=== PATIENT | male | born 1975 | race Caucasian/White ===

== ENCOUNTER 2017-08-22 15:21 | Outpatient (CLI) | payer OTHER ==
--- NOTE | 2017-08-25 09:55 | MRI ---
MRI RIGHT SHOULDER WITHOUT CONTRAST: HISTORY: Injury. Pain. COMPARISON: MRI from 2016. FINDINGS: Biceps tendon: Prior tenodesis. Labrum: There is fraying of the superior labrum without a new tear. There is less than mild fraying of the posterior-superior labrum. Rotator cuff: There is moderate bursal surface fraying of the posterior fibers of the supraspinatus tendon but predominantly of the infraspinatus tendon, although without a full-thickness perforation. Low grade interstitial tearing. There is a hidden interstitial tear of the anterior fibers, infrasp inatus tendon, at the footplate, measuring 4 mm in AP dimension, approximately 50% thickness. Bones: Prior surgery at the acromioclavicular joint. No acute fracture. No chest edema. Muscles: There is mild edema involving only the infraspinatus muscle. This is best seen on the sagi ttal T2 fat-sat. No significant muscle atrophy. IMPRESSION: 1. Mild fraying of the superior labrum, although much improved from the comparison examination. No new labral tear. 2. Moderate bursal surface fraying of the posterior supraspinatus and anterior infraspinatus tendon with mild interstitial tearing and tendinosis. There is also a hidden interstitial tear of the anter ior fibers, infraspinatus tendon, at the footplate, almost 50% thickness, which is hidden. 3. Edema of the infraspinatus muscle, low grade, which can be seen with brachial neuritis. No muscl e atrophy. POS: [facility]
== END 2017-08-22 15:22 | disposition home or self-care (01) ==
LOC: SCSMRI 15:21
PROVIDERS: ATTEND Orthopaedic Surgery
DX: M25.511 Pain in right shoulder (principal); M67.813 Other specified disorders of tendon, right shoulder; S46.911A Strain of unspecified muscle, fascia and tendon at shoulder and upper arm level, right arm, initial encounter; M62.89 Other specified disorders of muscle

== ENCOUNTER 2017-09-12 13:25 | Outpatient (CLI) | payer OTHER ==
--- NOTE | 2017-09-12 15:13 | MRI ---
CERVICAL SPINE MRI WITHOUT CONTRAST: Date: 09/12/17 HISTORY: Acute pain in the right shoulder. Numbness and tingling. COMPARISON: None. TECHNIQUE: Cervical spine MRI is performed without intravenous Gadolinium administration. Multisequential, multi planar imaging is performed. FINDINGS: Straightening of normal cervical lordosis may be due to patient positioning or muscle spasm. There is no evidence of STIR hyperintensity to suggest edema of the vertebral bodies or to suggest ligamentou s injury. Visualized brain parenchyma, cervicomedullary junction, cervical cord, and the upper thoracic cord jones ve a normal size and signal intensity. C2-C3: Central disc osteophyte complex without significant central canal stenosis. Neural foramina are paten t. C3-C4: No significant disc osteophyte complex. No significant central canal stenosis. Degenerative changes i n bilateral uncovertebral joints, along with bilateral facet hypertrophy result in mild right and mod erate left foraminal narrowing. C4-C5: Central/right paracentral disc osteophyte complex abuts the right aspect of the thecal sac and deform s the right hemicord. No T2 hyperintensity of the cord. Overall, mild central canal stenosis. Degener ative changes of the right uncovertebral joint result in mild right foraminal narrowing. The left jayro ral foramen is patent. C5-C6: Moderate disc osteophyte complex abuts the thecal sac. Ventral subarachnoid space is effaced. Mild fl attening of the cervical cord, without T2 hyperintensity of the cord. Overall, there is mild central canal stenosis. Mild bilateral foraminal narrowing. C6-C7: Broad based disc osteophyte complex abuts the thecal sac. Mild central canal stenosis. Mild bilateral foraminal narrowing. C7-T1: No significant disc osteophyte complex. No significant central canal stenosis. Neural foramina are pa tent. IMPRESSION: Degenerative changes of the cervical spine as described above. POS: [facility]
== END 2017-09-12 13:26 | disposition home or self-care (01) ==
LOC: TBSIIMAG 13:25
PROVIDERS: ATTEND Orthopaedic Surgery
DX: M47.22 Other spondylosis with radiculopathy, cervical region (principal); M25.511 Pain in right shoulder
CPT/HCPCS: 72141

== ENCOUNTER 2017-11-05 06:11 | Day surgery (SDC) | payer OTHER ==
[2017-11-04 08:19] VITALS: BMI 37.4
[2017-11-05] MEDS ORDERED: Sodium Chloride 0.9% 10 ML ONE (06:39)
[2017-11-05 06:46] LABS: Hemoglobin 14.8 g/dL (14.0-18.0); Mean Corpuscular HGB CONC 33.1 g/dL (32.0-36.0); Mean Corpuscular Hemoglobin 29.8 pg (27.0-31.0); Mean Corpuscular Volume 89.9 fL (78.0-98.0); Mean Platelet Volume 6.9 fL (7.4-10.4); Platelet Count 259 thou/uL (130-400); RBC Distribution Width 11.9 % (11.5-14.5); Red Blood Cell (RBC) Count 4.98 mill/uL (4.70-6.10); White Blood Cell (WBC) Count 7.5 thou/uL (4.8-10.8)
[2017-11-05] MEDS ORDERED: CEFAZOLIN/Water 2 GM/20 ML SYRINGE ONE (06:56)
[2017-11-05] MEDS ORDERED: Fentanyl 100 MCG/2 ML VIAL ONE (06:58)
[2017-11-05 07:03] LABS: Anion Gap 12 mmol/L (10-20); BUN (Urea Nitrogen) 15 mg/dL (8.9-20.6); Calc. Creatinine Clearance 175 mL/min (70-130); Calcium 8.8 mg/dL (7.8-10.44); Carbon Dioxide 24 mmol/L (22-29); Chloride 108 mmol/L (98-107); Estimated GFR-MDRD Greater than 90; Glucose 101 mg/dL (70-105); Potassium 3.8 mmol/L (3.5-5.1); Sodium 140 mmol/L (136-145)
[2017-11-05] MEDS ORDERED: PROPOFOL 200 MG/20 ML VIAL ONE (09:37)
[2017-11-05] MEDS ORDERED: PHENYLEPHRINE-NS 100 MCG/ML 10 ML SYRINGE ONE (09:37)
[2017-11-05] MEDS ORDERED: Lidocaine 1% PF 5 ML VIAL ONE (09:37)
[2017-11-05] MEDS ORDERED: Ondansetron HCl/PF 4 MG/2 ML Vial ONE (09:37)
[2017-11-05] MEDS ORDERED: Dexamethasone 20 MG/5 ML VIAL ONE (09:37)
[2017-11-05] MEDS ORDERED: ePHEDrine/0.9% NaCl/PF SYRINGE 50 mg/10 ml ONE (09:37)
[2017-11-05] MEDS ORDERED: Glycopyrrolate 0.2 MG/ML 5 ML SYRINGE ONE (09:37)
--- NOTE | 2017-11-05 10:19 | OP ---
DATE OF PROCEDURE: 11/05/2017 SURGEON: Henry Urbina M.D. DATA MANAGEMENT CONSULTANT: Sen Covarrubias PA-C PROCEDURE: Anterior cervical discectomy C5-6 and C6-7, interbody arthrodesis, intravertebral biomech anical device, local morselized autograft, demineralized bone matrix, anterior titanium instrumentati on C5-6 and C6-7. PROCEDURE IN DETAIL: The patient was brought into the operating room and intubated. He was rolled i n prone position on gel-filled chest rolls. Incision made exposing the anterior cervical spine and o ur level was confirmed by x-ray. We did inspect the anterior aspect of C4-5 and did not find any rochelle dence of degenerative disease or osteophytic change. We then placed distraction between C5 and C7, u sing the operating microscope and microdissection techniques, completely debrided the intravertebral discs and decompressed the spinal cord and the level of the dura bilaterally. The bony endplates wer e then decorticated for the purpose of arthrodesis and appropriately sized intravertebral biomechanic al PEEK device was brought into the field, filled with demineralized bone matrix, local morselized au tograft, and tapped into place securely at C5-6 and C6-7. Next, an anterior plate was brought in the field and secured to C5, C6, and C7 using two 14 mm screws at each level. The wound was then extens ively irrigated, immaculate hemostasis was secured, and the wound was closed in anatomic layers.
--- NOTE | 2017-11-09 17:09 | EKG ---
Test Reason : PREOP Blood Pressure : / mmHG Vent. Rate : 052 BPM Atrial Rate : 052 BPM P-R Int : 124 ms QRS Dur : 100 ms QT Int : 444 ms P-R-T Axes : 018 029 025 degrees QTc Int : 412 ms Sinus bradycardia with sinus arrhythmia Otherwise normal ECG No previous ECGs available Confirmed by KARLA CALDERON (2) on 11/09/2017 5:08:34 PM Referred By: CHAPIN Confirmed By:KARLA CALDERON
== END 2017-11-05 11:00 | disposition home or self-care (01) ==
LOC: SDC 06:11
PROVIDERS: ATTEND Neurological Surgery
PROC: 0RG1071 Fusion of Cervical Vertebral Joint with Autologous Tissue Substitute, Posterior Approach, Posterior Column, Open Approach (ICD-10-PCS; principal; 2017-11-05)
DX: M50.122 Cervical disc disorder at C5-C6 level with radiculopathy (principal); Z91.013 Allergy to seafood
CPT/HCPCS: 36415; 76001; 80048; 85027; 93005; 93010; A4216; C1713; C1776; J1100; J2001; J2405; J2704; J3010; J3490

== ENCOUNTER 2017-11-19 15:47 | Outpatient (CLI) | payer OTHER ==
--- NOTE | 2017-11-19 18:38 | RAD ---
3 VIEWS CERVICAL SPINE: Date: 11/19/17 HISTORY: Cervical radiculopathy. FINDINGS: AP, lateral, and open-mouth odontoid views of cervical spine obtained. Three views of the cervical sp ine demonstrate ACDF with fusion of the C5, C6, and C7 vertebra. ACDF plates and screws are in good p osition. Anterior osteophytes seen at C3-4. IMPRESSION: Mid and lower cervical spine fusion. No evidence of acute cervical spine abnormality seen. POS: [facility]
== END 2017-11-19 15:48 | disposition home or self-care (01) ==
LOC: TBSIIMAG 15:47
PROVIDERS: ATTEND Neurological Surgery
DX: M54.12 Radiculopathy, cervical region (principal); Z98.1 Arthrodesis status
CPT/HCPCS: 72040

== ENCOUNTER 2017-12-31 15:07 | Outpatient (CLI) | payer OTHER ==
--- NOTE | 2017-12-31 16:52 | RAD ---
CERVICAL SPINE AP LATERAL STANDARD 12/31/17 HISTORY: M54.12 - cervical radiculopathy. COMPARISON: Radiograph 11/19/17. FINDINGS: Similar appearance of ACDF hardware of C5-C7 without hardware complication. There is narrowing of the C4-C5 disc space. There are bridging anterior osteophyte at C3-4. Lung apices appear clear. IMPRESSION: Similar appearance of the postoperative changes. POS: [facility]
== END 2017-12-31 15:08 | disposition home or self-care (01) ==
LOC: TBSIIMAG 15:07
PROVIDERS: ATTEND Neurological Surgery
DX: M54.12 Radiculopathy, cervical region (principal); Z98.890 Other specified postprocedural states
CPT/HCPCS: 72040

== ENCOUNTER 2022-09-05 14:51 | Inpatient (IN) | payer BC ==
[2022-09-05] MEDS ORDERED: Acetaminophen 325 MG TAB PO PRN (19:43)
[2022-09-05] MEDS ORDERED: Acetaminophen 650 MG Suppository PR PRN (19:43)
[2022-09-05] MEDS ORDERED: Ondansetron PF 4 MG/2 ML Vial IVP PRN (19:43)
[2022-09-05] MEDS ORDERED: Ondansetron ODT 4 MG TAB PO PRN (19:43)
[2022-09-05 20:32] VITALS: BMI 41.8
[2022-09-05] MEDS: Enoxaparin 120 MG/0.8 ML SYRINGE SC SCH (21:04)
[2022-09-05 22:48] LABS: SARS-CoV-2 NAA Rapid Test Not Detected (NotDetected)
[2022-09-06 04:30] LABS: #Monocytes 0.7 thou/uL (0.11-0.59); #Neutrophils 11.1 thou/uL (1.40-6.50); %Basophils 0.1 % (0.0-1.0); %Lymphocytes 7.9 % (21.0-51.0); %Monocytes 5.4 % (0.0-10.0); %Neutrophils 86.3 % (42.0-75.0); Mean Corpuscular Hemoglobin 30.6 pg (27.0-31.0); Mean Corpuscular Volume 89.9 fl (78.0-98.0); Mean Platelet Volume 9.1 fL (7.4-10.4); Platelet Count 214 10x3/uL (130-400); RBC Distribution Width 12.2 % (11.5-14.5); Red Blood Cell (RBC) Count 5.23 mill/uL (4.70-6.10); White Blood Cell (WBC) Count 12.9 10x3/uL (4.8-10.8)
[2022-09-06 04:51] LABS: Anion Gap 12 mmol/L (10-20); BUN (Urea Nitrogen) 13 mg/dL (8.9-20.6); Calc. Creatinine Clearance 183 mL/min (70-130); Calcium 9.2 mg/dL (7.8-10.44); Carbon Dioxide 22 mmol/L (22-29); Chloride 107 mmol/L (98-107); Estimated GFR 110; Glucose 144 mg/dL (70-105); Sodium 137 mmol/L (136-145)
[2022-09-06] MEDS: Enoxaparin 120 MG/0.8 ML SYRINGE SC SCH ×2 (08:11→22:27)
[2022-09-06] MEDS ORDERED: Enoxaparin 120 MG/0.8 ML SYRINGE SC SCH (21:00)
[2022-09-07 04:26] LABS: #Basophils 0.1 thou/uL (0.0-0.2); #Eosinphils 0.2 thou/uL (0.0-0.7); #Monocytes 1.4 thou/uL (0.11-0.59); #Neutrophils 7.3 thou/uL (1.40-6.50); %Basophils 0.6 % (0.0-1.0); %Eosinophils 1.4 % (0.0-10.0); %Neutrophils 58.4 % (42.0-75.0); Hemoglobin 14.9 g/dL (14.0-18.0); Mean Corpuscular HGB CONC 34.2 g/dL (32.0-36.0); Mean Corpuscular Volume 90.6 fl (78.0-98.0); Mean Platelet Volume 9.6 fL (7.4-10.4); Platelet Count 211 10x3/uL (130-400); RBC Distribution Width 12.7 % (11.5-14.5); Red Blood Cell (RBC) Count 4.81 mill/uL (4.70-6.10); White Blood Cell (WBC) Count 12.5 10x3/uL (4.8-10.8)
[2022-09-07 04:54] LABS: Anion Gap 12 mmol/L (10-20); BUN (Urea Nitrogen) 17 mg/dL (8.9-20.6); Calc. Creatinine Clearance 177 mL/min (70-130); Calcium 8.5 mg/dL (7.8-10.44); Carbon Dioxide 26 mmol/L (22-29); Chloride 106 mmol/L (98-107); Estimated GFR 109; Glucose 95 mg/dL (70-105); Potassium 3.8 mmol/L (3.5-5.1); Sodium 140 mmol/L (136-145)
[2022-09-07] MEDS: Enoxaparin 120 MG/0.8 ML SYRINGE SC SCH (08:11)
[2022-09-07 19:35] LABS: Anion Gap 11 mmol/L (10-20); BUN (Urea Nitrogen) 16 mg/dL (8.9-20.6); Calc. Creatinine Clearance 158 mL/min (70-130); Calcium 8.9 mg/dL (7.8-10.44); Carbon Dioxide 30 mmol/L (22-29); Chloride 102 mmol/L (98-107); Estimated GFR 101; Glucose 87 mg/dL (70-105); Magnesium 1.8 mg/dL (1.6-2.6); Potassium 4.4 mmol/L (3.5-5.1); Sodium 139 mmol/L (136-145)
[2022-09-07] MEDS ORDERED: Electrolyte Replacement Protocol 1 EACH FS SCH (20:00)
[2022-09-07] MEDS ORDERED: Electrolyte Replacement Protocol FS PRN (20:00)
[2022-09-07] MEDS: Apixaban 5 MG TAB PO SCH (21:27)
[2022-09-08] MEDS ORDERED: Magnesium 2 GM/50 ML(in water) 2 GM in Premix Bag 1 BAG IVPB SCH (08:00)
[2022-09-08] MEDS: Apixaban 5 MG TAB PO SCH (09:01)
[2022-09-08 13:41] VITALS: BP 159/92; TEMP 97.6
== END 2022-09-08 13:44 | disposition home or self-care (01) | DRG 176 ==
LOC: INTOOBSV 14:51 → 2NO 14:51 → OBSVTOIN 09-06 16:38
PROVIDERS: ADMIT Family Medicine; ATTEND Internal Medicine
DX: I26.99 Other pulmonary embolism without acute cor pulmonale (principal); Z68.41 Body mass index [BMI] 40.0-44.9, adult; I82.402 Acute embolism and thrombosis of unspecified deep veins of left lower extremity; I47.29 Other ventricular tachycardia; S29.011A Strain of muscle and tendon of front wall of thorax, initial encounter; M47.812 Spondylosis without myelopathy or radiculopathy, cervical region; Z20.822 Contact with and (suspected) exposure to COVID-19; R77.8 Other specified abnormalities of plasma proteins; D72.829 Elevated white blood cell count, unspecified; I10 Essential (primary) hypertension; E66.01 Morbid (severe) obesity due to excess calories; Z91.013 Allergy to seafood; Z98.890 Other specified postprocedural states; Z82.49 Family history of ischemic heart disease and other diseases of the circulatory system
CPT/HCPCS: 36415; 80048; 83735; 85025; 93306; 93970; 96372; G0378; J1650; J3475; U0002